=== PATIENT | male | born 1980 ===

== ENCOUNTER 2023-03-11 10:47 | Outpatient (REF) | payer SELFPAY ==
[2023-03-11 14:08] LABS: Prostate Specific Antigen 0.39 ng/mL (<0.05-4.0)
== END 2023-03-11 10:48 | disposition home or self-care (01) ==
LOC: HO.HHCL 10:47
PROVIDERS: Visit Provider Internal Medicine Geriatric Medicine
DX: Z12.5 Encounter for screening for malignant neoplasm of prostate (principal); R30.0 Dysuria
CPT/HCPCS: 36415; 84153

== ENCOUNTER 2023-12-08 10:25 | Outpatient (REF) | payer SELFPAY ==
[2023-12-08 11:53] LABS: MANUAL DIFF FLAG NO
[2023-12-08 12:02] LABS: Basophils Percent Auto 0.6 % (0-2); Eosinophils Absolute Auto 0.1 X10*3/uL (0.0-0.4); Eosinophils Percent Auto 1.1 % (0-4); Hematocrit 44.7 % (42.0-52.0); Hemoglobin 15.1 g/dl (14.0-18.0); Imm Gran Abs Auto 0.02 X10*3/uL (0.00-0.03); Imm Gran Pct Auto 0.3 % (0.0-0.4); Lymphocytes Absolute Auto 2.8 X10*3/uL (1.2-4.9); Lymphocytes Percent Auto 45.5 % (20-40); Mean Corpuscular HGB Conc 33.8 g/dl (31.0-36.0); Mean Corpuscular Hemoglobin 28.1 pg (27.0-33.0); Mean Corpuscular Volume 83.1 fL (80.0-98.0); Mean Platelet Volume 11.9 fL (9.4-12.4); Monocytes Absolute Auto 0.5 X10*3/uL (0.1-1.2); Monocytes Percent Auto 8.7 % (2-11); Neutrophils Absolute Auto 2.7 x10*3/uL (2.0-8.3); Neutrophils Percent Auto 43.8 % (45-73); Platelet Count 174 X10*3/uL (160-400); Red Blood Count 5.38 X10*6/uL (4.60-5.80); Red Cell Distribution Width 13.4 % (11.0-16.0); White Blood Count 6.2 X10*3/uL (4.8-10.8)
[2023-12-08 12:20] LABS: Estimated Average Glucose 103 mg/dL; Hemoglobin A1c % 5.2 % (<6.0)
[2023-12-08 12:43] LABS: Alanine Aminotransferase 16 U/L (0-40); Albumin Level 4.1 g/dL (3.5-5.0); Alkaline Phosphatase 54 U/L (39-117); Anion Gap 9 (12-20); Aspartate Amino Transferase 20 U/L (5-37); Bilirubin Total 0.6 mg/dL (0.0-1.0); Blood Urea Nitrogen 10 mg/dL (9-16); Carbon Dioxide 31 mmol/L (22-29); Chloride 103 mmol/L (96-108); Cholesterol 159 mg/dL (<200); Estimated Glomerular Filt Rate > 60; Glucose Random 99 mg/dL (60-115); HDL Cholesterol 31 mg/dL (>40); LDL Cholesterol Calculated 96 mg/dL (<100); Potassium 3.9 mmol/L (3.3-5.1); Sodium 139 mmol/L (135-145); TSH reflex Free T4 1.43 uIU/mL (0.32-4.0); Total Protein 7.8 g/dL (6.5-8.0); Triglycerides 164 mg/dL (<150)
[2023-12-08 14:02] LABS: HIV AB/AG Reactive (Nonreactive)
[2023-12-11 17:38] LABS: HIV 1 Antibody POSITIVE (NEGATIVE); HIV 2 Antibody NEGATIVE (NEGATIVE)
== END 2023-12-08 10:26 | disposition home or self-care (01) ==
LOC: HO.HHCL 10:25
PROVIDERS: Visit Provider Internal Medicine Geriatric Medicine
DX: Z00.00 Encounter for general adult medical examination without abnormal findings (principal); R41.3 Other amnesia; Z11.4 Encounter for screening for human immunodeficiency virus [HIV]; F41.1 Generalized anxiety disorder; Z13.1 Encounter for screening for diabetes mellitus
CPT/HCPCS: 36415; 80053; 80061; 83036; 84443; 85025; 86701; 86702; 87389

== ENCOUNTER 2024-01-26 09:35 | Outpatient (REF) | payer MEDICAID, SELFPAY ==
[2024-01-26 12:43] LABS: CT PCR NOT DETECTED (Not Detect.); NG PCR NOT DETECTED (Not Detect.)
[2024-01-27 12:32] LABS: HIV RNA PCR Qn Copies 3890 copies/mL (NOT DETECTED); HIV RNA PCR Qn Log Copies 3.59 (NOT DETECTED)
[2024-01-28 15:33] LABS: RPR Rapid Plasma Reagin REACTIVE (NON-REACTIVE)
[2024-01-28 21:33] LABS: Toxoplasma IgM Antibody <8.00 AU/mL; Toxoplasma Interpretation WC314214Y
[2024-01-29 02:59] LABS: TS Negative Control Passed; TS Panel A 10; TS Panel B 9; TS Positive Control Passed; TSpotTB Positive (Negative)
[2024-01-29 18:09] LABS: Absolute CD3 Count 1844 cells/uL (840-3060); Absolute CD4 Count 530 cells/uL (490-1740); Absolute CD8 Count 1280 cells/uL (180-1170); Absolute Lymphocytes 2403 cells/uL (850-3900); CD4 CD8 Ratio 0.41 (0.86-5.00); Percent CD3 Cells 77 % (57-85); Percent CD4 Cells 22 % (30-61); Percent CD8 Cells 53 % (12-42)
== END 2024-01-26 09:36 | disposition home or self-care (01) ==
LOC: HO.HHCL 09:35
PROVIDERS: Visit Provider Internal Medicine
DX: Z21 Asymptomatic human immunodeficiency virus [HIV] infection status (principal)
CPT/HCPCS: 36415; 86359; 86360; 86481; 86592; 86593; 86777; 86778; 87491; 87536; 87591